=== PATIENT | male | born 1960 | race Caucasian/White ===

== ENCOUNTER 2018-05-29 16:43 | Emergency (ER) | payer OTHER ==
[2018-05-29 17:05] VITALS: BP 141/84
--- NOTE | 2018-05-29 17:20 | ED ---
Abdominal Pain/Male - HPI Summary HPI Summary: pain in the left upper abdomen which began acutely, this morning, unclear if he didnt also have some associated back pain, hx. of kidney stone in the past - History of Current Complaint Chief Complaint: UCGI Stated Complaint: LEFT SIDED ABD PAIN Time Seen by Provider: 05/29/18 17:03 Hx Obtained From: Patient Onset/Duration: Sudden Onset, Lasting Hours Timing: Intermittent Severity Initially: Moderate Severity Currently: Moderate Pain Intensity: 4 Location: Discrete At: LUQ Radiates: Yes Radiates to: Back Character: Sharp, Cramping Associated Signs And Symptoms: Positive: Diaphoresis - Allergies/Home Medications Allergies/Adverse Reactions: Allergies Allergy/AdvReac Type Severity Reaction Status Date / Time No Known Allergies Allergy Verified 12/04/16 10:54 PMH/Surg Hx/FS Hx/Imm Hx Previously Healthy: Yes Endocrine/Hematology History: Denies: Hx Diabetes Cardiovascular History: Denies: Hx Hypertension Respiratory History: Denies: Hx Asthma Sensory History: Reports: Hx Contacts or Glasses - WILL WEAR GLASSES DAY OF SURGERY Opthamlomology History: Reports: Hx Contacts or Glasses - WILL WEAR GLASSES DAY OF SURGERY - Cancer History Cancer Type, Location and Year: SKIN CANCER - Surgical History Surgery Procedure, Year, and Place: 1975 LEFT FRACTURED ARM. 2000 nasal surgery [facility]. 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 Hx Anesthesia Reactions: No Infectious Disease History: No Infectious Disease History: Denies: Traveled Outside the [place] in Last 30 Days - Social History Alcohol Use: None Substance Use Type: Reports: None Smoking Status (MU): Never Smoked Tobacco Have You Smoked in the Last Year: No Review of Systems Constitutional: Negative Eyes: Negative ENT: Negative Cardiovascular: Negative Respiratory: Negative Gastrointestinal: Other Positive: Abdominal Pain - left upper quadrant Genitourinary: Negative Positive: flank pain Musculoskeletal: Negative Skin: Negative Neurological: Negative All Other Systems Reviewed And Are Negative: Yes Physical Exam Triage Information Reviewed: Yes Vital Signs On Initial Exam: Initial Vitals Temp Pulse Resp BP Pulse Ox 36.8 C 59 16 141/84 100 05/29/18 17:00 05/29/18 17:00 05/29/18 17:00 05/29/18 17:00 05/29/18 17:00 Vital Signs Reviewed: Yes Appearance: Positive: Well-Appearing, Obese Skin: Positive: Warm, Dry Head/Face: Positive: Normal Head/Face Inspection Eyes: Positive: Normal ENT: Positive: Normal ENT inspection Neck: Positive: Supple Diagnostics - Vital Signs Vital Signs Temp Pulse Resp BP Pulse Ox 05/29/18 17:00 36.8 C 59 16 141/84 100 - Laboratory Lab Statement: Any lab studies that have been ordered have been reviewed, and results considered in the medical decision making process. Abdominal Pain Male Course/Dx - Diagnoses Provider Diagnoses: Ureteral stone Discharge - Sign-Out/Discharge Documenting (check all that apply): Patient Departure All imaging exams completed and their final reports reviewed: Yes - Discharge Plan Condition: Fair Disposition: HOME Patient Education Materials: Ureteral Stones (ED) Referrals: Tonio Welch MD [Primary Care Provider] - - Billing Disposition and Condition Condition: FAIR Disposition: Home
== END 2018-05-29 19:20 | disposition home or self-care (01) ==
LOC: UCCORT 16:43
DX: N20.1 Calculus of ureter (principal)
CPT/HCPCS: 74176; 81003; 99211; G0463